=== PATIENT | male | born 1955 | race Caucasian/White ===

== ENCOUNTER 2019-08-04 05:58 | Emergency (ER) | payer MEDICARE, OTHER ==
[~2019-08-04] VITALS: Ht 165.1 cm; Wt 66.7 kg
--- NOTE | 2019-08-04 06:15 | NUR ---
NICOLE FROM [facility]. TO ER BED 10. AAOX2. NO RESP DISTRESS, BREATHING EVEN AND UNLABORED. BEDBOUND. BROUGHT IN FOR SEIZURE. PER EMS REPORT, PT WAS STILL OUT OF IT UNTIL THEY GOT HIM IN THE AMBULANCE, HE STARTED COMING BACK AROUND AND ABLE TO TELL HIS NAME. PT DOES NOT REMEMBER THE INCIDENT. BS REPORTED AT 115. IV LINE PRESENT UPON ARRIVAL ON R HAND 22G. AT BEDSIDE FOR EVAL.
--- NOTE | 2019-08-04 06:28 | NUR ---
CALLED RESIDENTIAL FACILITY TO GET INFORMATION ABOUT PT. SPOKE WITH MIGUEL HATHAWAY. PER REPORT, PT IS ALTERED MENTAL STATUS. @ 5PM HE WAS FOUND UNRESPONSIVE, ONLY RESPONSIVE TO PAINFUL STIMULI. NURSE DENIED WITNESSING ANY SEIZURE. UPON ARRIVAL PATIENT IS ALERT AND AWAKE. AWARE
--- NOTE | 2019-08-04 06:34 | NUR ---
UPON ARRIVAL PT IS NOTED HYPERTENSIVE AT 192/127. MADE AWARE. AWAITING ORDERS
--- NOTE | 2019-08-04 06:42 | NUR ---
PT TO RADIOLOGY ON [facility]
[2019-08-04] MEDS ORDERED: LABETALOL HCL IV 100MG VIAL ONE (06:48)
[2019-08-04] MEDS ORDERED: IV NS 0.9% 500 ML BAG IV ONE (07:00)
[2019-08-04] MEDS ORDERED: LABETALOL 20 MG/4 ML VIAL IV ONE (07:00)
[2019-08-04 07:17] LABS: BASOPHILS % (AUTO) 0.8 % (0.0-2.0); EOSINOPHILS % (AUTO) 1.7 % (0.0-6.0); HEMATOCRIT 50 % (39-51); HEMOGLOBIN 16.9 g/dL (13.5-17.5); LYMPHOCYTES # (AUTO) 0.8 /CMM (0.8-4.8); LYMPHOCYTES % (AUTO) 14.1 % (20.0-44.0); MEAN CORPUSCULAR HGB CONC 34 g/dl (31.0-36.0); MEAN CORPUSCULAR VOLUME 92 fL (80-96); MONOCYTES # (AUTO) 0.4 /CMM (0.1-1.30); MONOCYTES % (AUTO) 7.1 % (2.0-12.0); NEUTROPHILS # (AUTO) 4.4 /CMM (1.8-8.9); NEUTROPHILS % (AUTO) 76.3 % (43.0-81.0); PLATELET COUNT (AUTO) 178 /CMM (150-450); RED BLOOD CELL COUNT(AUTO) 5.43 MIL/uL (4.5-6.0); WHITE BLOOD COUNT (AUTO) 5.8 K/uL (4.3-11.0)
[2019-08-04 07:23] LABS: CALCIUM, SERUM 9.7 mg/dL (8.5-10.1); CARBON DIOXIDE 24 mmol/L (21-32); CHLORIDE 103 mmol/L (98-107); CREATININE 1.5 mg/dL (0.6-1.3); GLUCOSE 111 mg/dL (74-106); POTASSIUM 3.9 mmol/L (3.5-5.1); SODIUM SERUM 139 mmol/L (136-145); UREA NITROGEN, BLOOD 24 mg/dL (7-18)
--- NOTE | 2019-08-04 07:35 | NUR ---
REPORT RECEIVED FROM NIMCO RIVERA FOR TAMMIE
--- NOTE | 2019-08-04 07:36 | NUR ---
PT STILL NOTED WITH BP OF 198/121. MADE AWARE. NNO RECEIVED AT THIS TIME
--- NOTE | 2019-08-04 07:36 | NUR ---
REPORT GIVEN TO MIGUEL DEY FOR TAMMIE
[2019-08-04 07:59] LABS: ALKALINE PHOSPHATASE 164 U/L (46-116); ASPARTATE AMINOTRANSFERASE 31 U/L (15-37); BILIRUBIN,DIRECT 0.2 mg/dL (0.0-0.2); BILIRUBIN,TOTAL 0.6 mg/dL (0.2-1.0)
[2019-08-04 08:00] LABS: ACETAMINOPHEN 0 ug/ml (10-30); ALANINE AMINOTRANSFERASE 40 U/L (12-78); ALBUMIN 3.3 g/dL (3.4-5.0); ALCOHOL, BLOOD < 3 mg/dL (0-0); SALICYLATE 1.6 mg/dL (2.8-20.0); SERUM AMMONIA 24 umol/L (11-32); THYROID STIMULATING HORMONE 2.421 uIU/mL (0.358-3.74); TOTAL PROTEIN, SERUM 8.3 g/dL (6.4-8.2)
[2019-08-04] MEDS ORDERED: CLONIDINE HCL 0.1 MG TABLET ONE (08:09)
[2019-08-04] MEDS ORDERED: CLONIDINE HCL 0.1 MG TABLET PO ONE (08:30)
--- NOTE | 2019-08-04 08:39 | NUR ---
Dilan zavala in [facility] - 08/04/19 at 0849 by HARSHAD SEEN AND EXAMINED BY DR. ARAGON.
--- NOTE | 2019-08-04 08:40 | NUR ---
Dilan zavala in [facility] - 08/04/19 at 0849 by HARSHAD CALLED NURSING SUP FOR MS BED.
[2019-08-04] MEDS ORDERED: hydrALAZINE HCL IV 20 MG VIAL ONE (08:48)
--- NOTE | 2019-08-04 08:52 | NUR ---
[facility] TRANSPORT ARRANGED. ETA 1100, SPOKE TO CYNTHIA FROM DISPATCH.
[2019-08-04] MEDS ORDERED: hydrALAZINE HCL IV 20 MG VIAL IV ONE (09:00)
--- NOTE | 2019-08-04 10:30 | NUR ---
REPORT GIVEN TO LIZA TECHNOLOGY ADOPTION MANAGER OF [facility], AWARE OF PATIENTS ELEVATED BP.
--- NOTE | 2019-08-04 11:21 | NUR ---
IV removed. Catheter intact and site benign. Pressure and 4x4 applied to site. No bleeding noted. Patient picked up by [facility] in stable condition going back to [facility]. Written and verbal after care instructions given. Patient verbalizes understanding of instruction.
[2019-08-04 11:26] VITALS: BP 165/104
== END 2019-08-04 11:27 ==
LOC: ER 06:10
DX: R40.4 Transient alteration of awareness (principal); R53.1 Weakness; I10 Essential (primary) hypertension; F03.90 Unspecified dementia, unspecified severity, without behavioral disturbance, psychotic disturbance, mood disturbance, and anxiety; G35 Multiple sclerosis; G82.50 Quadriplegia, unspecified; R56.9 Unspecified convulsions; N40.0 Benign prostatic hyperplasia without lower urinary tract symptoms; Z98.890 Other specified postprocedural states
CPT/HCPCS: 36415; 70450; 80048; 80076; 80307; 80329; 82140; 84443; 84484; 85025; 96374; 96375; 99285; G0480; J0360; J3490 ×2; J7040

== ENCOUNTER 2020-05-22 22:24 | Emergency (ER) | payer MEDICARE, OTHER ==
[~2020-05-22] VITALS: Ht 182.9 cm; Wt 99.8 kg
--- NOTE | 2020-05-22 22:28 | NUR ---
BIBPA FROM [facility] S/P UNWITNESSED SEIZURE +ORAL TRAUMA PER RA, BS 118; PT TO BED 3, AWAKE, RESPONSIVE TO PAIN, PLACED ON MONITOR, VSS, NAD NOTED, PENDING ER PROVIDER EVAL
[2020-05-22 22:49] LABS: BASOPHILS % (AUTO) 0.7 % (0.0-2.0); EOSINOPHILS % (AUTO) 2.2 % (0.0-6.0); HEMATOCRIT 47 % (39-51); HEMOGLOBIN 15.5 g/dL (13.5-17.5); LYMPHOCYTES # (AUTO) 0.9 /CMM (0.8-4.8); LYMPHOCYTES % (AUTO) 15.4 % (20.0-44.0); MEAN CORPUSCULAR HGB CONC 33 g/dl (31.0-36.0); MEAN CORPUSCULAR VOLUME 93 fL (80-96); MONOCYTES # (AUTO) 0.6 /CMM (0.1-1.30); MONOCYTES % (AUTO) 10.2 % (2.0-12.0); NEUTROPHILS # (AUTO) 4.3 /CMM (1.8-8.9); NEUTROPHILS % (AUTO) 71.5 % (43.0-81.0); PLATELET COUNT (AUTO) 238 /CMM (150-450); RED BLOOD CELL COUNT(AUTO) 5.09 MIL/uL (4.5-6.0)
[2020-05-22 23:05] LABS: ALANINE AMINOTRANSFERASE 50 U/L (12-78); ALBUMIN 3.2 g/dL (3.4-5.0); ALCOHOL, BLOOD < 3 mg/dL (0-0); ALKALINE PHOSPHATASE 122 U/L (46-116); ASPARTATE AMINOTRANSFERASE 36 U/L (15-37); BILIRUBIN,DIRECT 0.1 mg/dL (0.0-0.2); BILIRUBIN,TOTAL 0.5 mg/dL (0.2-1.0); CALCIUM, SERUM 9.4 mg/dL (8.5-10.1); CARBON DIOXIDE 30 mmol/L (21-32); CHLORIDE 105 mmol/L (98-107); CREATININE 1.7 mg/dL (0.6-1.3); GLUCOSE 103 mg/dL (74-106); POTASSIUM 4.6 mmol/L (3.5-5.1); SODIUM SERUM 140 mmol/L (136-145); TOTAL PROTEIN, SERUM 7.9 g/dL (6.4-8.2); UREA NITROGEN, BLOOD 27 mg/dL (7-18)
--- NOTE | 2020-05-22 23:13 | NUR ---
PT TO CT
[2020-05-22] MEDS ORDERED: hydrALAZINE HCL IV 20 MG VIAL ONE (23:38)
[2020-05-22] MEDS: hydrALAZINE HCL IV 20 MG VIAL IV ONE (23:42)
--- NOTE | 2020-05-23 00:54 | NUR ---
[facility] CALLED FOR TRANSPORT, ETA 0120. TRIP# [id number]
[2020-05-23] MEDS ORDERED: hydrALAZINE HCL IV 20 MG VIAL ONE (01:01)
[2020-05-23] MEDS: hydrALAZINE HCL IV 20 MG VIAL IV ONE (01:06)
--- NOTE | 2020-05-23 01:53 | NUR ---
REPORT GIVEN TO SHIRIN NURSE AT [facility]
--- NOTE | 2020-05-23 02:17 | NUR ---
PT TRANSPORTED BACK TO FACILITY VIA [facility] ([facility]). PT LEFT IN STABLE CONDITION, VSS.
[2020-05-23 02:18] VITALS: BP 168/98
[2020-05-24] MEDS ORDERED: CEFTRIAXONE 1GM BAG (ER ONLY) 50 ML IV ONE (01:37)
== END 2020-05-23 02:18 ==
LOC: ER 22:26
DX: R56.9 Unspecified convulsions (principal); I16.0 Hypertensive urgency; R53.1 Weakness; R51 Headache; N40.0 Benign prostatic hyperplasia without lower urinary tract symptoms; G82.50 Quadriplegia, unspecified; Z98.890 Other specified postprocedural states
CPT/HCPCS: 36415; 70450; 71045; 80048; 80076; 80305; 80307; 85025; 85730; 93005; 96374; 96376; 99285; J0360; G0480; J0696

== ENCOUNTER 2020-05-23 21:28 | Emergency (ER) | payer MEDICARE, OTHER ==
[~2020-05-23] VITALS: Ht 167.6 cm; Wt 74.8 kg
--- NOTE | 2020-05-23 21:53 | NUR ---
PATIENT CAME TO ER BED 3 C/O WITNESSED SEIZURE FOR 1x MINUTES, BIB RA FROM [facility]. PATIENT CURRENTLY IS AAOX3. NO SOB. BREATHING EVENLY AND UNLABORED ON ROOM AIR. CONNECTED TO MONITOR. SEIZURE PRECAUTIONS INITIATED
--- NOTE | 2020-05-23 22:24 | NUR ---
BLOOD DRAWN AND SENT TO LAB.
[2020-05-23 23:04] LABS: BASOPHILS % (AUTO) 0.6 % (0.0-2.0); EOSINOPHILS % (AUTO) 0.8 % (0.0-6.0); HEMATOCRIT 48 % (39-51); HEMOGLOBIN 15.8 g/dL (13.5-17.5); LYMPHOCYTES # (AUTO) 0.5 /CMM (0.8-4.8); LYMPHOCYTES % (AUTO) 6.9 % (20.0-44.0); MEAN CORPUSCULAR HGB CONC 33 g/dl (31.0-36.0); MEAN CORPUSCULAR VOLUME 94 fL (80-96); MONOCYTES # (AUTO) 0.3 /CMM (0.1-1.30); MONOCYTES % (AUTO) 4.4 % (2.0-12.0); NEUTROPHILS # (AUTO) 6.8 /CMM (1.8-8.9); NEUTROPHILS % (AUTO) 87.3 % (43.0-81.0); PLATELET COUNT (AUTO) 234 /CMM (150-450); RED BLOOD CELL COUNT(AUTO) 5.08 MIL/uL (4.5-6.0); WHITE BLOOD COUNT (AUTO) 7.8 K/uL (4.3-11.0)
[2020-05-23 23:14] LABS: CALCIUM, SERUM 9.5 mg/dL (8.5-10.1); CARBON DIOXIDE 27 mmol/L (21-32); CHLORIDE 101 mmol/L (98-107); CREATININE 1.7 mg/dL (0.6-1.3); GLUCOSE 128 mg/dL (74-106); POTASSIUM 4.2 mmol/L (3.5-5.1); SODIUM SERUM 136 mmol/L (136-145); UREA NITROGEN, BLOOD 27 mg/dL (7-18)
[2020-05-23 23:20] LABS: ALANINE AMINOTRANSFERASE 38 U/L (12-78); ALBUMIN 3.3 g/dL (3.4-5.0); ALCOHOL, BLOOD < 3 mg/dL (0-0); ALKALINE PHOSPHATASE 123 U/L (46-116); ASPARTATE AMINOTRANSFERASE 37 U/L (15-37); BILIRUBIN,DIRECT 0.2 mg/dL (0.0-0.2); BILIRUBIN,TOTAL 0.7 mg/dL (0.2-1.0); TOTAL PROTEIN, SERUM 8.1 g/dL (6.4-8.2)
[2020-05-24] MEDS ORDERED: LIDOCAINE 2% JEL UROJET 10 ML MM ONE (00:03)
--- NOTE | 2020-05-24 00:20 | NUR ---
URINE COLLECTED AND SENT TO THE LAB.
[2020-05-24 00:34] LABS: APPEARANCE,URINE Cloudy (CLEAR); BILIRUBIN,URINE Negative (NEGATIVE); BLOOD, URINE Moderate Ery/uL (NEGATIVE); COLOR,URINE Yellow (YELLOW); KETONES,URINE Negative (NEGATIVE); LEUKOCYTE ESTERASE ,URINE Large (NEGATIVE); NITRITE, URINE Positive (NEGATIVE); PH,URINE 6.5 (5.0-8.0); PROTEIN,URINE >=300 mg/dl (NEGATIVE); UGLUCOSE Negative (NEGATIVE)
[2020-05-24 00:52] LABS: RBC,URINE 21-50 /HPF (0-2); WBC,URINE TOO NUMEROUS TO COUN /HPF (0-3)
[2020-05-24 00:53] LABS: BACTERIA,URINE Many /HPF (None Seen); SQUAMOUS EPITHELIAL CELL,UR Few /HPF (None Seen)
--- NOTE | 2020-05-24 00:53 | NUR ---
NOTIFIED OF 169/100 BP.
[2020-05-24] MEDS ORDERED: CEFTRIAXONE 1 G in IV D5W 50 ML IV ONE (01:30)
--- NOTE | 2020-05-24 02:09 | NUR ---
[facility] CALLED FOR 0700 TRANSPORT.
--- NOTE | 2020-05-24 02:13 | NUR ---
REPORT GIVEN TO JON RIVERA FOR TAMMIE. Addendum: 05/24/20 at 0213 by KAITLIN JON RIVERA IS FROM [facility].
--- NOTE | 2020-05-24 02:58 | NUR ---
PATIENT IS SLEEPING. NOT IN ANY DISTRESS. BREATHING EVENLY AND UNLABORED ON ROOM AIR. CONNECTED TO MONITOR. VSS. WILL CONTINUE TO MONITOR PATIENT.
--- NOTE | 2020-05-24 04:08 | NUR ---
REPORT GIVEN [facility] TRANSPORT TEAM FOR TAMMIE. AND TRANSFERRING RESPONSIBILITIES.
[2020-05-24 04:09] VITALS: BP 139/93
== END 2020-05-24 04:10 | disposition home or self-care (01) ==
LOC: ER 21:32
DX: N39.0 Urinary tract infection, site not specified (principal); G40.909 Epilepsy, unspecified, not intractable, without status epilepticus; N40.0 Benign prostatic hyperplasia without lower urinary tract symptoms; R53.1 Weakness; G82.50 Quadriplegia, unspecified; Z98.890 Other specified postprocedural states
CPT/HCPCS: 36415; 80048; 80076; 80307; 81001; 85025; 87086; 96365; 99285; J0696; J3490; J7060; 81000-TC; 87186-TC; G0480

== ENCOUNTER 2021-01-05 02:26 | Emergency (ER) | payer MEDICARE, OTHER ==
[~2021-01-05] VITALS: Ht 167.6 cm; Wt 78.5 kg
--- NOTE | 2021-01-05 02:43 | NUR ---
NICOLE FROM [facility] FOR C/O ALTERED MENTAL STATUS. PT ALERT AND AWAKE. RESPONSIVE TO QUESTIONS. BREATHING EVENLY. SATTING 98% ON RA. NO SOB, DENIED ANY PAIN OR DISCOMFORT. AFEBRILE. PT WAS PLACED ON BED 6 ER. GOENED UP AND PLACED ON MONITOR. VSS. WILL CONT TO MONITOR ,
[2021-01-05 03:02] LABS: BASOPHILS % (AUTO) 0.7 % (0.0-2.0); EOSINOPHILS % (AUTO) 2.8 % (0.0-6.0); HEMATOCRIT 47 % (39-51); HEMOGLOBIN 15.7 g/dL (13.5-17.5); LYMPHOCYTES # (AUTO) 1.3 /CMM (0.8-4.8); LYMPHOCYTES % (AUTO) 21.8 % (20.0-44.0); MEAN CORPUSCULAR HGB CONC 34 g/dl (31.0-36.0); MEAN CORPUSCULAR VOLUME 93 fL (80-96); MONOCYTES # (AUTO) 0.4 /CMM (0.1-1.30); MONOCYTES % (AUTO) 6.7 % (2.0-12.0); NEUTROPHILS # (AUTO) 4.2 /CMM (1.8-8.9); PLATELET COUNT (AUTO) 222 /CMM (150-450); RED BLOOD CELL COUNT(AUTO) 5.03 MIL/uL (4.5-6.0); WHITE BLOOD COUNT (AUTO) 6.1 K/uL (4.3-11.0)
[2021-01-05 03:10] LABS: CALCIUM, SERUM 9.5 mg/dL (8.5-10.1); CREATININE 1.6 mg/dL (0.6-1.3); POTASSIUM 4.7 mmol/L (3.5-5.1)
[2021-01-05 03:14] LABS: BILIRUBIN,URINE NEGATIVE (NEGATIVE); COLOR,URINE YELLOW (YELLOW); LEUKOCYTE ESTERASE ,URINE LARGE (NEGATIVE); NITRITE, URINE POSITIVE (NEGATIVE); PROTEIN,URINE 30 mg/dl (NEGATIVE); UGLUCOSE NEGATIVE (NEGATIVE); UROBILINOGEN,URINE 0.2 EU/dL (0.2)
[2021-01-05 03:16] LABS: BACTERIA,URINE Many /HPF (None Seen); SQUAMOUS EPITHELIAL CELL,UR Few /HPF (None Seen); WBC,URINE 21-50 /HPF (0-3)
[2021-01-05 03:16] LABS: ALBUMIN 3.5 g/dL (3.4-5.0); BILIRUBIN,DIRECT 0.1 mg/dL (0.0-0.2); BILIRUBIN,TOTAL 0.4 mg/dL (0.2-1.0); TOTAL PROTEIN, SERUM 8.6 g/dL (6.4-8.2)
[2021-01-05] MEDS ORDERED: SULF1TAB48 PO (04:06)
--- NOTE | 2021-01-05 04:09 | NUR ---
CALLED [facility]. ETA 30MINUTES
[2021-01-05] MEDS ORDERED: SULFAMETH/TRIMETH 800/160 MG 1 UDTAB TABLET ONE (04:16)
[2021-01-05] MEDS ORDERED: SULFAMETH/TRIMETH 800/160 MG 1 UDTAB TABLET PO ONE (04:30)
--- NOTE | 2021-01-05 04:32 | NUR ---
REPORT GIVEN TO [facility] FOR TRANSPORTATION TAMMIE
--- NOTE | 2021-01-05 04:33 | NUR ---
MULTIPLE ATTEMPTS TO CONTACT FACILITY REGARDING PATIENT BEING DISCHARGED AND TRANSFERED BACK TO FACILITY. NO ANSWER, UNABLE TO LEAVE MESSAGE
[2021-01-05 04:35] VITALS: BP 151/85
== END 2021-01-05 04:40 | disposition home or self-care (01) ==
LOC: ER 02:27
DX: N39.0 Urinary tract infection, site not specified (principal); N40.0 Benign prostatic hyperplasia without lower urinary tract symptoms; M19.90 Unspecified osteoarthritis, unspecified site; D64.9 Anemia, unspecified
CPT/HCPCS: 36415; 71045-TC; 80048-TC; 80076-TC; 81001; 85025-TC; 87086-TC; 87186-TC

== ENCOUNTER 2021-03-31 01:31 | Emergency (ER) | payer MEDICARE, OTHER ==
[~2021-03-31] VITALS: Ht 172.7 cm; Wt 90.7 kg
[~2021-03-31 01:31] MED LIST: SULF1TAB48 PO
--- NOTE | 2021-03-31 01:45 | NUR ---
pt bibra c/o unwitnessed seizure. Pt aaox3 breathing evenly and unlabored. Pt was unaware of how he came to the hospital or the events leading up to being in the ED. Pt states "im not sure what happened. when i woke up, i was here in the hospital". Per ems, pt had unwitnessed seizure and staff began CPR on him. Pt denies any pain. Seizure precautions initiated. skin warm, dry, and intact. Pt rt hand 20g initated. Pt attached to monitor and pox. Pt given blanket and call light within reach
[2021-03-31] MEDS ORDERED: LORAZEPAM INJ 2 MG/ML VIAL IVP ONE (02:00)
[2021-03-31] MEDS ORDERED: IV NS 0.9% 500 ML BAG IV ONE (02:00)
[2021-03-31] MEDS ORDERED: LORAZEPAM INJ 2 MG/ML VIAL ONE ×2 (02:08→02:15)
--- NOTE | 2021-03-31 02:20 | NUR ---
blood obtained and sent to lab
[2021-03-31 02:47] LABS: CALCIUM, SERUM 9.2 mg/dL (8.5-10.1); CARBON DIOXIDE 25 mmol/L (21-32); CHLORIDE 101 mmol/L (98-107); CREATININE 1.3 mg/dL (0.6-1.3); GLUCOSE 102 mg/dL (74-106); POTASSIUM 5.4 mmol/L (3.5-5.1); SODIUM SERUM 135 mmol/L (136-145); UREA NITROGEN, BLOOD 31 mg/dL (7-18)
[2021-03-31 02:53] LABS: ALANINE AMINOTRANSFERASE 38 U/L (12-78); ALBUMIN 3.4 g/dL (3.4-5.0); ALCOHOL, BLOOD < 3 mg/dL (0-0); ALKALINE PHOSPHATASE 131 U/L (46-116); ASPARTATE AMINOTRANSFERASE 38 U/L (15-37); TOTAL PROTEIN, SERUM 8.8 g/dL (6.4-8.2)
[2021-03-31 03:08] LABS: BASOPHILS % (AUTO) 0.5 % (0.0-2.0); EOSINOPHILS % (AUTO) 2.6 % (0.0-6.0); HEMATOCRIT 48 % (39-51); HEMOGLOBIN 15.9 g/dL (13.5-17.5); LYMPHOCYTES # (AUTO) 1.2 /CMM (0.8-4.8); LYMPHOCYTES % (AUTO) 19.8 % (20.0-44.0); MEAN CORPUSCULAR HGB CONC 33 g/dl (31.0-36.0); MEAN CORPUSCULAR VOLUME 94 fL (80-96); MONOCYTES # (AUTO) 0.4 /CMM (0.1-1.30); MONOCYTES % (AUTO) 6.8 % (2.0-12.0); NEUTROPHILS # (AUTO) 4.3 /CMM (1.8-8.9); NEUTROPHILS % (AUTO) 70.3 % (43.0-81.0); PLATELET COUNT (AUTO) 194 /CMM (150-450); RED BLOOD CELL COUNT(AUTO) 5.11 MIL/uL (4.5-6.0); WHITE BLOOD COUNT (AUTO) 6.1 K/uL (4.3-11.0)
[2021-03-31 03:10] LABS: BILIRUBIN,TOTAL 0.7 mg/dL (0.2-1.0)
[2021-03-31 03:11] LABS: BILIRUBIN,DIRECT 0.1 mg/dL (0.0-0.2)
[2021-03-31] MEDS ORDERED: CLONIDINE HCL 0.1 MG TABLET ONE (04:37)
--- NOTE | 2021-03-31 04:47 | NUR ---
[facility] eta 45-60min
[2021-03-31] MEDS ORDERED: CLONIDINE HCL 0.1 MG TABLET PO ONE (05:00)
--- NOTE | 2021-03-31 05:17 | NUR ---
SPOKE TO JON AT [facility] FOR TAMMIE.
--- NOTE | 2021-03-31 05:50 | NUR ---
GAVE REPORT TO EMS
--- NOTE | 2021-03-31 05:51 | NUR ---
Patient discharged to home in stable condition. Written and verbal after care instructions given. Patient verbalizes understanding of instruction. IV removed. Catheter intact and site benign. Pressure and 4x4 applied to site. No bleeding noted. Pt transferred to [facility]
[2021-03-31 05:52] VITALS: BP 146/97
== END 2021-03-31 05:15 ==
LOC: ER 01:34
DX: G40.909 Epilepsy, unspecified, not intractable, without status epilepticus (principal); G35 Multiple sclerosis; F32.9 Major depressive disorder, single episode, unspecified; Z79.899 Other long term (current) drug therapy
CPT/HCPCS: 36415; 70450; 80048; 80076; 80320; 85025; 96374; 99285; J2060 ×2; J7030; J7040; G0480

== ENCOUNTER 2021-10-17 18:39 | Inpatient (IN) | payer MEDICARE, OTHER ==
[~2021-10-17] VITALS: Ht 167.6 cm; Wt 69.4 kg
--- NOTE | 2021-10-17 18:47 | NUR ---
TO ER BED 8, BIB RA [facility],AMS NOTED 2 HRS AIRFRAME TECHNICAL OFFICER,NORMALLY TALKS, AAOX2, RESPONSE TO STIMULI, SEEN BY DR CLAYTON
--- NOTE | 2021-10-17 19:05 | NUR ---
REC'D REPORT FROM MIGUEL ALLEN FOR TAMMIE
[2021-10-17] MEDS ORDERED: DOXA2TAB2 GT (19:11)
[2021-10-17] MEDS ORDERED: NETA2.5D3 EACHEYE (19:11)
[2021-10-17] MEDS ORDERED: LACT-96 GT (19:11)
[2021-10-17] MEDS ORDERED: MULT-447 GT (19:11)
[2021-10-17] MEDS ORDERED: NA P133E RC (19:11)
[2021-10-17] MEDS ORDERED: CYCL5TAB GT (19:11)
[2021-10-17] MEDS ORDERED: ACET-868 GT (19:11)
[2021-10-17] MEDS ORDERED: LEVE100S GT (19:11)
[2021-10-17] MEDS ORDERED: BACL10TA GT (19:11)
[2021-10-17] MEDS ORDERED: ASPI-1169 GT (19:11)
[2021-10-17] MEDS ORDERED: MAGN400O6 GT (19:11)
[2021-10-17] MEDS ORDERED: CRAN3875 GT (19:11)
[2021-10-17] MEDS ORDERED: SODI1TAB66 GT (19:11)
[2021-10-17] MEDS ORDERED: CLON0.2T GT (19:11)
[2021-10-17] MEDS ORDERED: ACET-2605 GT (19:11)
[2021-10-17] MEDS ORDERED: LACT1CAP71 GT (19:11)
[2021-10-17] MEDS ORDERED: CHOL100062 GT (19:11)
[2021-10-17] MEDS ORDERED: BISA10SU11 RC (19:11)
[2021-10-17] MEDS ORDERED: PHEN125O GT (19:11)
--- NOTE | 2021-10-17 19:20 | NUR ---
LAB AT BEDSIDE
--- NOTE | 2021-10-17 19:22 | NUR ---
URINE SENT TO LAB
[2021-10-17 19:30] LABS: BASOPHILS # (AUTO) 0.1 K/uL (0.0-0.2); BASOPHILS % (AUTO) 1.1 % (0.0-2.0); EOSINOPHILS % (AUTO) 3.2 % (0.0-6.0); HEMATOCRIT 45 % (39-51); LYMPHOCYTES # (AUTO) 1.4 K/uL (0.8-4.8); LYMPHOCYTES % (AUTO) 20.7 % (20.0-44.0); MEAN CORPUSCULAR HGB CONC 34 g/dl (31.0-36.0); MEAN CORPUSCULAR VOLUME 93 fL (80-96); MONOCYTES # (AUTO) 0.6 K/uL (0.1-1.30); MONOCYTES % (AUTO) 8.7 % (2.0-12.0); NEUTROPHILS # (AUTO) 4.4 K/uL (1.8-8.9); NEUTROPHILS % (AUTO) 66.3 % (43.0-81.0); PLATELET COUNT (AUTO) 287 K/uL (150-450); RED BLOOD CELL COUNT(AUTO) 4.79 MIL/uL (4.5-6.0); WHITE BLOOD COUNT (AUTO) 6.7 K/uL (4.3-11.0)
[2021-10-17 19:43] LABS: CALCIUM, SERUM 8.5 mg/dL (8.5-10.1); CARBON DIOXIDE 30 mmol/L (21-32); CHLORIDE 101 mmol/L (98-107); CREATININE 1.4 mg/dL (0.6-1.3); GLUCOSE 121 mg/dL (74-106); POTASSIUM 3.8 mmol/L (3.5-5.1); SERUM AMMONIA 11 umol/L (11-32); SODIUM SERUM 138 mmol/L (136-145); UREA NITROGEN, BLOOD 29 mg/dL (7-18)
[2021-10-17 19:49] LABS: ALANINE AMINOTRANSFERASE 55 U/L (12-78); ALBUMIN 2.9 g/dL (3.4-5.0); ALCOHOL, BLOOD < 3 mg/dL (0-0); ALKALINE PHOSPHATASE 187 U/L (46-116); ASPARTATE AMINOTRANSFERASE 36 U/L (15-37); BILIRUBIN,DIRECT 0.1 mg/dL (0.0-0.2); BILIRUBIN,TOTAL 0.3 mg/dL (0.2-1.0); TOTAL PROTEIN, SERUM 7.6 g/dL (6.4-8.2)
--- NOTE | 2021-10-17 20:26 | NUR ---
EPIC CASH CONTROL SPECIALIST PAGED
[2021-10-17 20:27] LABS: BILIRUBIN,URINE NEGATIVE (NEGATIVE); COLOR,URINE YELLOW (YELLOW); PROTEIN,URINE 3+ mg/dl (NEGATIVE); UGLUCOSE NEGATIVE (NEGATIVE); UROBILINOGEN,URINE 0.2 EU/dL (0.2)
[2021-10-17 20:28] LABS: BACTERIA,URINE 4+ /HPF (None Seen); LEUKOCYTE ESTERASE ,URINE MODERATE (NEGATIVE); NITRITE, URINE NEGATIVE (NEGATIVE); SQUAMOUS EPITHELIAL CELL,UR Few /HPF (None Seen); WBC,URINE 51-80 /HPF (0-3)
[2021-10-17] MEDS ORDERED: CEFTRIAXONE 1GM BAG (ER ONLY) 1 GM/50 ML PIGGYBACK IV ONE (20:30)
--- NOTE | 2021-10-17 20:31 | NUR ---
CALLED NURSING SUP FOR BED
[2021-10-17] MEDS ORDERED: CEFTRIAXONE 1GM BAG (ER ONLY) 50 ML IV ONE (20:46)
[2021-10-17] MEDS ORDERED: MAG HYDROX/AL HYDROX/SIMETH 30 ML UDC PO PRN (22:00)
[2021-10-17] MEDS ORDERED: ACETAMINOPHEN 325 MG TABLET PO PRN (22:00)
[2021-10-17] MEDS ORDERED: Z GUARD REMEDY 2 OZ OINT TP PRN (22:00)
[2021-10-17] MEDS ORDERED: MAGNESIUM HYDROXIDE 30 ML UDC PO PRN (22:00)
[2021-10-17] MEDS ORDERED: ONDANSETRON HCL/PF 4 MG/2 ML VIAL IVP PRN (22:00)
--- NOTE | 2021-10-17 22:06 | NUR ---
VERBAL ORDER 10MG HYDRALAZINE
[2021-10-17] MEDS ORDERED: hydrALAZINE HCL IV 20 MG VIAL ONE (22:07)
[2021-10-17] MEDS ORDERED: hydrALAZINE HCL IV 20 MG VIAL IV ONE (22:30)
--- NOTE | 2021-10-17 22:42 | NUR ---
GAVE REPORT TO MIGUEL LINDQUIST FOR TAMMIE
[2021-10-17 23:30] VITALS: BP 145/85
--- NOTE | 2021-10-17 23:30 | NUR ---
RN NOTE RECEIVED REPORT FROM FAUSTO MATHEW. ADMITTED A 65 YEAR OLD MALE FROM ER, ARRIVED VIA GURNEY AT 2250. PATIENT AOX1, ONLY ABLE TO STATE NAME, ONLY RESPONDS TO SOME YES OR NO QUESTION. STATES "I DONT KNOW" TO MOST QUESTIONS. PATIENT APPEARS LETHARGIC, ABLE TO OPEN EYES. BREATHING EVEN AND UNLABORED. ON 2L/MIN NC. TOLERATING WELL WITH SATURATION OF 97 PERCENT. HOB ELEVATED SEMI-HARDY. SKIN WARM AND DRY. AFEBRILE AT THIS TIME. DENIES PAIN AT THIS TIME. NOTED WITH RIGHT HAND PERIPHERAL IV 22G. PATENT. NOTED WITH G-TUBE. NOTED WITH MCKAY CATHETER, DRAINING URINE. SECURED. NO BLEEDING NOTED. PATIENT UNABLE TO MOVE ALL FOUR EXTREMITIES AT THIS TIME. KEPT CLEAN AND DRY. BED LOW, IN LOCKED POSITION. CALL LIGHT WITHIN REACH.
[2021-10-17] MEDS: IV NS 0.9% 1,000 ML IV PRN (23:35)
[2021-10-17] MEDS: ENOXAPARIN SODIUM 40 MG/0.4 ML DISP.SYRIN SQ SCH (23:36)
[2021-10-18 04:00] VITALS: BP 185/101
--- NOTE | 2021-10-18 04:04 | NUR ---
RN NOTE PATIENT NOTED WITH ELEVATED BLOOD PRESSURE AFTER SEVERAL ATTEMPTS. BLOOD PRESSURE NOTED TO BE 185/101 WITH HR OF 84 BPM. PAGED CARGO TANK MECHANIC, DR. ARREDONDO. AWAITING CALL BACK. PATIENT HOB ELEVATED. DENIES HEADACHE. DENIES PAIN. WILL CONTINUE TO MONITOR.
[2021-10-18] MEDS: hydrALAZINE HCL IV 20 MG VIAL IV PRN ×3 (04:17→12:53)
--- NOTE | 2021-10-18 04:20 | NUR ---
RN NOTE PER MD ORDER, ADMINISTER HYDRALAZINE 10MG VIA IV PUSH. NOTED AND CARRIED OUT. WILL CONTINUE TO MONITOR. CALL LIGHT WITHIN REACH.
[2021-10-18 05:04] VITALS: BP 158/88
[2021-10-18 06:56] LABS: BASOPHILS # (AUTO) 0.1 K/uL (0.0-0.2); BASOPHILS % (AUTO) 0.7 % (0.0-2.0); EOSINOPHILS % (AUTO) 0.7 % (0.0-6.0); HEMATOCRIT 46 % (39-51); HEMOGLOBIN 15.2 g/dL (13.5-17.5); LYMPHOCYTES # (AUTO) 1.3 K/uL (0.8-4.8); LYMPHOCYTES % (AUTO) 11.8 % (20.0-44.0); MEAN CORPUSCULAR HGB CONC 34 g/dl (31.0-36.0); MEAN CORPUSCULAR VOLUME 94 fL (80-96); MONOCYTES # (AUTO) 0.8 K/uL (0.1-1.30); MONOCYTES % (AUTO) 7.3 % (2.0-12.0); NEUTROPHILS # (AUTO) 8.9 K/uL (1.8-8.9); NEUTROPHILS % (AUTO) 79.5 % (43.0-81.0); PLATELET COUNT (AUTO) 365 K/uL (150-450); RED BLOOD CELL COUNT(AUTO) 4.83 MIL/uL (4.5-6.0); WHITE BLOOD COUNT (AUTO) 11.2 K/uL (4.3-11.0)
[2021-10-18 07:30] LABS: ALBUMIN 3.1 g/dL (3.4-5.0); BILIRUBIN,TOTAL 0.3 mg/dL (0.2-1.0); CALCIUM, SERUM 9.1 mg/dL (8.5-10.1); CREATININE 1.3 mg/dL (0.6-1.3); MAGNESIUM 2.8 mg/dL (1.8-2.4); PHOSPHORUS 3.5 mg/dL (2.5-4.9); POTASSIUM 3.4 mmol/L (3.5-5.1); TOTAL PROTEIN, SERUM 8.1 g/dL (6.4-8.2)
[2021-10-18] MEDS ORDERED: PANTOPRAZOLE 40 MG TABLET.DR PO SCH (07:30)
[2021-10-18 08:00] VITALS: BP 168/96
[2021-10-18 08:13] LABS: PHENYTOIN (DILANTIN) 39.3 ug/ml (10.0-20.0)
--- NOTE | 2021-10-18 08:18 | NUR ---
PATIENT RECEIVED AOX2, NPO, PATIENT APPEARS LETHARGIC, ABLE TO OPEN EYES. BREATHING EVEN AND UNLABORED. ON 2L/MIN NC. TOLERATING WELL WITH SATURATION OF 97 PERCENT. HOB ELEVATED SEMI-HARDY. SKIN WARM AND DRY. DENIES PAIN AT THIS TIME. RIGHT INDEX FINGER PATANT AND INTACT SALIN LOCK AND FLUSHING WELL IV 22G. PATENT. NOTED WITH G-TUBE. NOTED WITH MCKAY CATHETER, DRAINING URINE. SECURED. NO BLEEDING NOTED. PATIENT UNABLE TO MOVE ALL FOUR EXTREMITIES AT THIS TIME. KEPT CLEAN AND DRY. BED LOW, IN LOCKED POSITION. CALL LIGHT WITHIN REACH. CONTINUE MONITOR AND ASSESS. Addendum: 10/18/21 at 0823 by DEVANG HARGROVE RN NPO EXCLUDING MED
[2021-10-18] MEDS: POTASSIUM CL. PREMIX PERIPHER. 50 ML IV SCH ×2 (09:52→11:35)
[2021-10-18] MEDS: PANTOPRAZOLE 40 MG VIAL IV SCH (09:52)
[2021-10-18 12:00] VITALS: BP 149/85
[2021-10-18 16:49] VITALS: BP 138/88
[2021-10-18] MEDS: IV NS 0.9% 1,000 ML IV PRN (17:17)
--- NOTE | 2021-10-18 18:38 | NUR ---
RN CLOSING NOTE PT AOX2, PATIENT APPEARS LETHARGIC, ABLE TO OPEN EYES. BREATHING EVEN AND UNLABORED. ON 2L/MIN NC. TOLERATING WELL WITH SATURATION OF 98 PERCENT. HOB ELEVATED SEMI-HARDY. SKIN WARM AND DRY. DENIES PAIN AT THIS TIME. RIGHT INDEX FINGER PATENT AND INTACT SALIN LOCK AND FLUSHING WELL IV 22G PATENT.2 BAG OF POTASSIUM REPLACED . NOTED WITH G-TUBE. NOTED WITH MCKAY CATHETER, DRAINING URINE. SECURED. NO BLEEDING NOTED. PATIENT UNABLE TO MOVE ALL FOUR EXTREMITIES AT THIS TIME. KEPT CLEAN AND DRY. BED LOW, IN LOCKED POSITION. CALL LIGHT WITHIN REACH. REPORT ENDURES TO THE NEXT SHIFT, TO CONTINUE ASSESS AND MONITOR
[2021-10-18 20:00] VITALS: BP 150/84
[2021-10-18] MEDS: CEFTRIAXONE 1 G in IV D5W 50 ML IV SCH (20:10)
[2021-10-18] MEDS: ENOXAPARIN SODIUM 40 MG/0.4 ML DISP.SYRIN SQ SCH (20:11)
--- NOTE | 2021-10-19 02:10 | NUR ---
RN NOTES, PATIENT RECEIVED IN SLEEPING BUT EASILY AROUSABLE, A/O X2 AND VERBALLY RESPONSIVE. ON O2 INHALATION AT 2L/MIN VIA NASAL CANNULA, O2 SAT 99%. BREATHING EVEN AND UNLABORED. ROCEPHIN AND LOVENOX GIVEN PER ORDERED. SALINE LOCK ON RT INDEX FINGER INTACT AND PATENT. NO S/S OF INFILTRATIONS. NO C/O PAIN OR DISCOMFORT. NO ACUTE DISTRESS. SKIN WARM AND DRY TO TOUCH. G-TUBE SITE INTACT AND PATENT. NO BLEEDING NOTED. MCKAY CATHETER INTACT W/ YELLOWISH /CLEAR URINE. SAFETY MEASURE PROVIDED. BED IN POSITION AND LOCKED. BOTH SIDE RAILS UP TO PREVENT ANY INJURY. BED ALARM ON PLACE. CALL LIGHT WITH IN REACH. WILL CONTINUE TO MONITOR.
[2021-10-19 04:00] VITALS: BP 157/78
[2021-10-19 07:26] LABS: BASOPHILS # (AUTO) 0.1 K/uL (0.0-0.2); BASOPHILS % (AUTO) 0.5 % (0.0-2.0); HEMATOCRIT 42 % (39-51); HEMOGLOBIN 14.3 g/dL (13.5-17.5); LYMPHOCYTES # (AUTO) 1.1 K/uL (0.8-4.8); LYMPHOCYTES % (AUTO) 9.9 % (20.0-44.0); MEAN CORPUSCULAR HGB CONC 34 g/dl (31.0-36.0); MEAN CORPUSCULAR VOLUME 94 fL (80-96); MONOCYTES # (AUTO) 1.4 K/uL (0.1-1.30); MONOCYTES % (AUTO) 13.1 % (2.0-12.0); NEUTROPHILS # (AUTO) 8.3 K/uL (1.8-8.9); NEUTROPHILS % (AUTO) 76.5 % (43.0-81.0); PLATELET COUNT (AUTO) 316 K/uL (150-450); WHITE BLOOD COUNT (AUTO) 10.9 K/uL (4.3-11.0)
--- NOTE | 2021-10-19 07:30 | NUR ---
MS RN OPENING NOTES RECEIVED PATIENT AWAKE ON BED AND A/O X4. ON O2 AT 2LPM VIA NASAL CANNULA SATURATING WELL. NO SOB NOTED. NOT IN DISTRESS. WITH NO COMPLAINTS OF PAIN AT THIS TIME. WITH IV ACCESS AT RIGHT INDEX FINGER WITH IVF NS AT 75ML/HR INFUSING WELL. IV ACCESS IS PATENT AND INTACT.SAFETY MEASURES IN PLACE. CALL LIGHT WITHIN REACH. BED ON LOWEST AND LOCKED POSITION, SIDE RAILS UP X2. WILL CONTINUE TO MONITOR.
[2021-10-19] MEDS: IV NS 0.9% 1,000 ML IV PRN ×2 (07:49→19:27)
[2021-10-19 07:51] LABS: ALBUMIN 2.7 g/dL (3.4-5.0); BILIRUBIN,TOTAL 0.3 mg/dL (0.2-1.0); CALCIUM, SERUM 8.4 mg/dL (8.5-10.1); CREATININE 1.6 mg/dL (0.6-1.3); MAGNESIUM 2.6 mg/dL (1.8-2.4); PHOSPHORUS 4.1 mg/dL (2.5-4.9); POTASSIUM 3.7 mmol/L (3.5-5.1); TOTAL PROTEIN, SERUM 7.3 g/dL (6.4-8.2)
[2021-10-19 08:00] VITALS: BP 141/77
--- NOTE | 2021-10-19 08:04 | NUR ---
WOUND CARE CONSULT: REVIEWED CHART, NURSING DOCUMENTATION AND PHOTOS WHICH INDICATE SACRAL SCARRING AND WOUND/SCAR TO RT BUTTOCK, PRESENT ON ADMISSION. SURGICAL CONSULT TO DR ERICKSON. RECOMMENDATIONS MADE FOR SKIN PROTECTION. DISCUSSED WITH NURSING STAFF. PT IS ON DOREEN ISOFLEX LOW AIRLOSS BED. MD IN AGREEMENT WITH PLAN OF CARE.
[2021-10-19] MEDS: PANTOPRAZOLE 40 MG VIAL IV SCH (08:17)
[2021-10-19 08:27] LABS: PHENYTOIN (DILANTIN) 35.3 ug/ml (10.0-20.0)
[2021-10-19] MEDS ORDERED: CYCLOBENZAPRINE 10 MG TABLET PO PRN (14:00)
[2021-10-19] MEDS ORDERED: ACETAMINOPHEN 325 MG TABLET PO PRN (14:00)
[2021-10-19 16:00] VITALS: BP 146/78
[2021-10-19] MEDS: BACLOFEN (10 MG) 10 MG TABLET GT SCH (16:21)
[2021-10-19] MEDS: LEVETIRACETAM SOL (5 ML) 100 MG/ML UDC GT SCH (16:21)
--- NOTE | 2021-10-19 19:25 | NUR ---
MS RN CLOSING NOTES PATIENT RESTING ON BED AND A/O X4. ON O2 AT 2LPM VIA NASAL CANNULA SATURATING WELL. NO SOB NOTED. NOT IN DISTRESS. WITH NO COMPLAINTS OF PAIN AT THIS TIME. WITH IV ACCESS AT RIGHT INDEX FINGER WITH IVF NS AT 75ML/HR INFUSING WELL. IV ACCESS IS PATENT AND INTACT. SAFETY MEASURES IN PLACE. CALL LIGHT WITHIN REACH. BED ON LOWEST AND LOCKED POSITION, SIDE RAILS UP X2. WILL ENDORSE TO NEXT SHIFT FOR TAMMIE.
[2021-10-19] MEDS: CEFTRIAXONE 1 G in IV D5W 50 ML IV SCH (20:07)
[2021-10-19] MEDS: DOXAZOSIN MESYLATE (1 MG) 1 MG TABLET PO SCH (21:26)
[2021-10-19] MEDS: ENOXAPARIN SODIUM 40 MG/0.4 ML DISP.SYRIN SQ SCH (21:28)
--- NOTE | 2021-10-19 22:37 | NUR ---
RN OPENING NOTES: RECEIVED PATIENT FROM DAY SHIFT, PATIENT A/O X4 IN BED, BED LOCKED AND IN LOWEST POSITION, SIDE RAILS UP X2, CALL LIGHT WITHIN REACH, PATIENT PARALYZED AND UNABLE TO USE CALL LIGHT, NO SOB, NO SIGNS OF DISTRESS, ON NC 2L, WILL CONTINUE TO MONITOR AND IMPLEMENT NURSING INTERVENTIONS APPROPRIATE.
[2021-10-20] VITALS: BP 146/80
--- NOTE | 2021-10-20 06:06 | NUR ---
RN MS CLOSING NOTES: PATIENT IN BED, SLEEPING, VS WNL, IV SITE PATENT AND INTACT, PATIENT HAD 2 BM AND 900 CC URINE IN MCKAY, CLEAR, YELLOW. SHOWS NO SIGNS OF SOB, NO DISTRESS, ON NC 2L, TOLERATING WELL, BED LOCKED AND AT LOWEST POSITION, SIDE RAILS UP X2, CALL LIGHT WITHIN REACH (BUT HE IS PARAPLEGIC AND UNABLE TO USE), PATIENT COOPERATIVE, MEPILEX PLACED ON SACRAL AREA WITH REDNESS. WILL CONTINUE TO MONITOR AND ENDORSE TO MORNING SHIFT NURSE.
[2021-10-20 06:50] LABS: CALCIUM, SERUM 8.3 mg/dL (8.5-10.1); CREATININE 1.5 mg/dL (0.6-1.3); POTASSIUM 3.1 mmol/L (3.5-5.1)
--- NOTE | 2021-10-20 07:30 | NUR ---
RN NOTE RECEIVED PT IN BED. A/A/OX4. ON 2LPM O2 VIA NC. SATURATING @100%. NO SOB. DENIES PAIN. WITH MCKAY CATH IN PLACE WITH CLEAR OUTPUT. TOLERATING PUREE DIET. IV TO RIGHT INDEX FINGER WITH IVF RUNNING @75CC/HR. WITHOUT DIFFICULTY. DENIES PAIN AT THIS TIME. SAFETY MEASURES OBSERVED. CALL LIGHT WITHIN REACH. WILL CONTINUE TO MONITOR.
[2021-10-20 08:00] VITALS: BP 145/80
[2021-10-20 08:37] LABS: PHENYTOIN (DILANTIN) 21.9 ug/ml (10.0-20.0)
[2021-10-20] MEDS: ASPIRIN 81 MG TAB.CHEW GT SCH (08:40)
[2021-10-20] MEDS: BACLOFEN (10 MG) 10 MG TABLET GT SCH ×2 (08:40→17:26)
[2021-10-20] MEDS: LEVETIRACETAM SOL (5 ML) 100 MG/ML UDC GT SCH ×2 (08:40→17:26)
[2021-10-20] MEDS: PANTOPRAZOLE 40 MG TABLET.DR PO SCH (08:40)
[2021-10-20] MEDS ORDERED: POTASSIUM CHLORIDE 20 MEQ TAB.PRT.SR PO ONE (09:30)
--- NOTE | 2021-10-20 09:30 | NUR ---
WOUND CARE CONSULT: PT SEEN FOR SKIN ASSESSMENT AND NOTED TO HAVE SACRAL SCARRING AND RT BUTTOCK FOLD MOISTURE (INCONTINENCE) ASSOCIATED SKIN DAMAGE OVER SCAR, PRESENT ON ADMISSION. RECOMMENDATIONS MADE FOR SKIN PROTECTION. DISCUSSED WITH NURSING STAFF. PT IS INCONTINENT OF STOOL. PT IS ON DOREEN ISOFLEX LOW AIRLOSS BED. IN AGREEMENT WITH PLAN OF CARE. Addendum: 10/20/21 at 0931 by ISACC AYON WNDNU Amended: Links added.
[2021-10-20] MEDS: IV NS 0.9% 1,000 ML IV PRN (10:47)
[2021-10-20] MEDS: CEFEPIME 2 GM in IV D5W 100 ML IV SCH (13:50)
[2021-10-20 16:00] VITALS: BP 142/83
--- NOTE | 2021-10-20 18:55 | NUR ---
RN NOTE RECEIVED PT IN BED. A/A/OX4. ON 2LPM O2 VIA NC. . NO SOB. DENIES PAIN. WITH MCKAY CATH IN PLACE WITH CLEAR OUTPUT. TOLERATING PUREE DIET. IV TO RIGHT INDEX FINGER WITH IVF RUNNING @75CC/HR. WITHOUT DIFFICULTY. DENIES PAIN AT THIS TIME. SAFETY MEASURES OBSERVED. CALL LIGHT WITHIN REACH. NEDDS MET AND ATTENDED.WILL ENDORSE TO PATRICK RIVERA.
--- NOTE | 2021-10-20 19:50 | NUR ---
RN OPENING NOTES RECEIVED PATIENT IN BED, A/OX4, ABLE TO VERBALIZE NEEDS. PATIENT EXPRESSES NO SOB, ON 2L NC, O2 SAT 97%. VITAL SIGNS ARE WNL. NO SIGNIFICANT FINDINGS UPON NURSING ASSESSMENT. R INDEX FINGER G#22 IV ACCESS IS PATIENT AND CURRENTLY RUNNING NS AT 75ML/HR. PATIENT DENIES PAIN AT THIS TIME. ALL SAFETY MEASURES IMPLEMENTED, CALL LIGHT WITHIN REACH, BED AT LOWEST POSITION AND WITH WHEELS LOCKED IN PLACE. ALL PATIENT NEEDS MET AND ATTENDED. WILL CONTINUE TO MONITOR FOR CHANGES IN PATIENT HEALTH STATUS.
[2021-10-20] MEDS: ENOXAPARIN SODIUM 40 MG/0.4 ML DISP.SYRIN SQ SCH (21:26)
[2021-10-20] MEDS: DOXAZOSIN MESYLATE (1 MG) 1 MG TABLET PO SCH (21:27)
[2021-10-21] VITALS: BP 161/91
[2021-10-21] MEDS: IV NS 0.9% 1,000 ML IV PRN (04:23)
--- NOTE | 2021-10-21 06:59 | NUR ---
RN CLOSING NOTES WILL ENDORSE PATIENT TO DAY SHIFT NURSE IN STABLE CONDITIONS. PATIENT IN BED, A/OX4, ABLE TO VERBALIZE NEEDS. PATIENT EXPRESSES NO SOB, ON 2L NC, O2 SAT 100%. VITAL SIGNS ARE WNL. NO SIGNIFICANT FINDINGS UPON NURSING ASSESSMENTS. R INDEX FINGER G#22 IV ACCESS IS PATIENT AND CURRENTLY RUNNING NS AT 75ML/HR. PATIENT DENIES PAIN AT THIS TIME. ALL SAFETY MEASURES IMPLEMENTED, CALL LIGHT WITHIN REACH, BED AT LOWEST POSITION AND WITH WHEELS LOCKED IN PLACE. ALL PATIENT NEEDS MET AND ATTENDED. WILL ENDORSE TO DAY SHIFT NURSE FOR TAMMIE.
[2021-10-21 07:05] LABS: BASOPHILS % (AUTO) 0.9 % (0.0-2.0); EOSINOPHILS % (AUTO) 3.4 % (0.0-6.0); HEMATOCRIT 38 % (39-51); HEMOGLOBIN 12.7 g/dL (13.5-17.5); LYMPHOCYTES % (AUTO) 18.9 % (20.0-44.0); MEAN CORPUSCULAR HGB CONC 34 g/dl (31.0-36.0); MEAN CORPUSCULAR VOLUME 94 fL (80-96); MONOCYTES # (AUTO) 0.7 K/uL (0.1-1.30); MONOCYTES % (AUTO) 12.6 % (2.0-12.0); NEUTROPHILS # (AUTO) 3.4 K/uL (1.8-8.9); NEUTROPHILS % (AUTO) 64.2 % (43.0-81.0); PLATELET COUNT (AUTO) 200 K/uL (150-450); RED BLOOD CELL COUNT(AUTO) 4.05 MIL/uL (4.5-6.0); WHITE BLOOD COUNT (AUTO) 5.3 K/uL (4.3-11.0)
[2021-10-21 07:38] LABS: CALCIUM, SERUM 7.8 mg/dL (8.5-10.1); CREATININE 1.4 mg/dL (0.6-1.3); MAGNESIUM 2.3 mg/dL (1.8-2.4); PHOSPHORUS 4.2 mg/dL (2.5-4.9); POTASSIUM 3.3 mmol/L (3.5-5.1)
--- NOTE | 2021-10-21 07:52 | NUR ---
RN OPEN NOTES PT RECEIVED RESTING IN BED ON SEMI HARDY POSITION ALERT AND ORIENT X4 WITH NO SIGN OF DISTRESS OR SOB WITH EVEN BREATHING AND UNLABORED ON 2L/MIN NASAL CANULA, IV ON THE R INDEX FINGER PATENT AND INTACT, FLUSHING WELL. MCKAY CATHETER IN PLACE WITH 800 OUTPUT AT THIS TIME, URINE IS CLEAR AND YELLOW, G TUBE IN PLACE WITH NO RESIDUALS NOTED, SAFETY MEASURES IN PLACE, BD ALARM ON, LOCKED AND IN LOWEST POSITION SIDE RAILS UP CALL LIGHT WITHIN REACH
[2021-10-21 08:00] VITALS: BP 175/103
[2021-10-21] MEDS: PANTOPRAZOLE 40 MG TABLET.DR PO SCH (08:54)
[2021-10-21] MEDS: ASPIRIN 81 MG TAB.CHEW GT SCH (08:54)
[2021-10-21] MEDS: LEVETIRACETAM SOL (5 ML) 100 MG/ML UDC GT SCH (08:55)
[2021-10-21] MEDS: BACLOFEN (10 MG) 10 MG TABLET GT SCH (08:55)
[2021-10-21] MEDS ORDERED: POTASSIUM CHLORIDE 20 MEQ POWDER PACKET PO SCH (11:00)
[2021-10-21] MEDS: CEFEPIME 2 GM in IV D5W 100 ML IV SCH (11:46)
[2021-10-21] MEDS ORDERED: CEFE2PIG2 IV (13:17)
[2021-10-21] MEDS ORDERED: PHEN125O GT (13:17)
[2021-10-21 13:38] VITALS: BP 161/90
[2021-10-21] MEDS: hydrALAZINE HCL IV 20 MG VIAL IV PRN (13:38)
--- NOTE | 2021-10-21 15:20 | NUR ---
DISCHARGE NOTE PT DISCHARGE TO [facility] REPORT GIVEN AT ALL QUESTIONS ANSWERED, PT IN STABLE CONDITION WITH NO SIGN AND SYMPTOMS OF DISTRESS, BREATHING EVEN AND UNLABORED ON ROOM AIR, ALERT AND ORIENTED X4, NO PAIN ENDORSED, MCKAY CATHETER IN PLACE BAG DRAINED PRIOR TO DC, IV REMOVED, WRIST BAND IDENTIFICATION REMOVED, G TUBE IN PLACE WITH NO RESIDUAL OR EXUDATE AT THE INSERTION SITE, CLAMPED. REPORT GIVEN TO ARABELLA RIVERA AT [facility].
== END 2021-10-21 15:00 | DRG 682 ==
LOC: ER 18:42 → MEDSG1 22:09
PROVIDERS: ADMIT Hospitalist; ATTEND Student in an Organized Health Care Education/Training Program
DX: N17.0 Acute kidney failure with tubular necrosis (principal); G93.41 Metabolic encephalopathy; G82.50 Quadriplegia, unspecified; N39.0 Urinary tract infection, site not specified; D68.59 Other primary thrombophilia; E44.1 Mild protein-calorie malnutrition; G40.909 Epilepsy, unspecified, not intractable, without status epilepticus; M48.00 Spinal stenosis, site unspecified; G35 Multiple sclerosis; E87.6 Hypokalemia; T42.0X5A Adverse effect of hydantoin derivatives, initial encounter; D64.9 Anemia, unspecified; H40.9 Unspecified glaucoma; N40.0 Benign prostatic hyperplasia without lower urinary tract symptoms; M19.90 Unspecified osteoarthritis, unspecified site; Z79.82 Long term (current) use of aspirin; Z87.440 Personal history of urinary (tract) infections; Z93.1 Gastrostomy status; G62.9 Polyneuropathy, unspecified; N18.9 Chronic kidney disease, unspecified; F32.9 Major depressive disorder, single episode, unspecified; L89.159 Pressure ulcer of sacral region, unspecified stage; B96.89 Other specified bacterial agents as the cause of diseases classified elsewhere; I12.9 Hypertensive chronic kidney disease with stage 1 through stage 4 chronic kidney disease, or unspecified chronic kidney disease; Z20.822 Contact with and (suspected) exposure to COVID-19; Y92.129 Unspecified place in nursing home as the place of occurrence of the external cause
CPT/HCPCS: 36415; 70450-TC; 71045-TC; 80048-TC; 80053-TC; 80076-TC; 80185-TC; 81001; 82140-TC; 83735-TC; 84100-TC; 84443-TC; 84484-TC; 85025-TC; 85730-TC; 87081-TC; 87086-TC; 87186-TC; 92526; 92611-TC; C9113; G0378; G0480; J0360; J0692; J0696; J1650; J1953; J3480; J7030; J7060; U0003